=== PATIENT | male | born 1970 | race Caucasian/White ===

== ENCOUNTER 2020-03-26 09:47 | Emergency (ER) | payer MEDICAID, SELFPAY ==
[2020-03-26 09:58] VITALS: BP 168/86; PULSE 96; RESP 18; TEMP 36.8; O2SAT 97; BMI 36.9
--- NOTE | 2020-03-26 09:58 | XR_ITS ---
WS: [id number] Left wrist, 4 views including a scaphoid view, 03/26/2020 Clinical Data: fall pain Comparison: None. Findings: No fractures or dislocations are seen. The carpal bones are intact. There is no soft tissue swelling. The distal radius and ulna are not remarkable. XR/XR wrist LT w scaphoid [id number] Impression: Negative left wrist.
--- NOTE | 2020-03-26 09:58 | XR_ITS ---
WS: [id number] 3 views of the left first finger, 03/26/2020 Clinical Data: Thumb Comparison: None. Findings: No fractures or dislocations are seen. The soft tissues are normal. The joint spaces are not remarka ble. XR/XR finger LT min 2V [id number] Impression: Negative left thumb.
--- NOTE | 2020-03-26 11:10 | ED_ITS ---
HPI - Extremity Problem General: Chief complaint: Extremity Injury, Upper Stated complaint: fall-left hand injury Time Seen by Provider: 03/26/20 09:56 History of Present Illness: HPI Narrative: 49-year-old male presents to the emergency room with complaint of left thumb pain. He reports having fallen down last night. Localizes the pain to the PIP joint in the left thumb. No other injuries. MD Complaint: joint pain Onset (ago): day(s) (1) Pain Consistency: constant Location: left Quality: sharp Radiation: none Relieving factors: nothing Exacerbating factors: range of motion and palpation Associated symptoms: Deny arthralgias, chest pain, fever(s), myalgias, rash or short of breath Review of Systems Const: Denies: fever(s) ENMT: Denies: throat pain, ear or mastoid pain, nasal discharge or nasal congestion Card: Denies: chest pain Resp: Denies: dyspnea, productive cough or non-productive cough GI: Denies: abdominal pain, nausea, vomiting, hematemesis, coffee ground emesis, diarrhea, constipation, bloating, hematochezia or melena : Denies: flank pain, dysuria, urinary frequency or urinary urgency Skin/Breast: Denies: rash PFSH ED PFSH: Social History Smoking and tobacco status: current every day smoker Alcohol intake: never Physical Exam Const: COMMON NORMALS: no acute distress GENERAL APPEARANCE: cooperative and comfortable ORIENTATION/CONSCIOUSNESS: Yes awake, Yes oriented to person, Yes oriented to place and Yes oriented to time HENMT: COMMON NORMALS: normocephalic, atraumatic and hearing grossly normal bilaterally HEAD & SCALP: normocephalic and atraumatic Neck/C-Spine: COMMON NORMALS: no JVD Resp: COMMON NORMALS: normal respiratory effort, No retractions, No use of accessory muscles and clear to auscultation bilaterally AUSCULTATION: clear to auscultation bilaterally Cardio: COMMON NORMALS: no JVD, regular rate, regular rhythm and No murmurs present (Cardio) RATE: regular rate RHYTHM: regular rhythm Extremity: NARRATIVE EXTREMITY EXAM: Examination of the left thumb there is no pain in the anatomical snuffbox there is no pain with axial loading. There is discomfort with stress on the medial and lateral collateral ligaments on the thumb at the PIP joint. There is no subluxation there is no deformity at those joints with stress. There is no significant swelling. Neuro: SENSORIUM/ORIENTATION: Yes oriented to person, Yes oriented to place and Yes oriented to time Skin: COMMON NORMALS: no rashes or lesions noted GENERAL SKIN EXAM: no rashes or lesions noted Course Vital Signs: Vital signs: Vital Signs Temperature 98.2 F 03/26/20 09:58 Pulse Rate 85 03/26/20 12:22 Respiratory Rate 18 03/26/20 12:22 Blood Pressure 197/108 03/26/20 12:22 Pulse Oximetry 96 03/26/20 12:22 MDM - Extremity (Nontraumatic) MDM Narrative: Medical decision making narrative: Reviewed findings with the patient ice anti-inflammatories follow-up with primary care if does not resolve. At this point the medial collateral ligaments are intact so I think he just sprained it. If it worsened he could get advanced imaging through primary care. Discharge Plan Discharge Patient Disposition: Home Clinical Impression: Left thumb sprain Condition: Stable Prescriptions: New diclofenac sodium 75 mg tablet,delayed release (DR/EC) 75 mg PO Q12H PRN (Reason: pain) Qty: 20 RF: 0 Discharge Orders: Discharge Order (Routine); Ordered 03/26/20 Ordered By: Ken Gomez Discharge Diet: Usual diet Discharge Activity: Increase activity as tolerated Activity Restrictions/Additional Instructions: If not improving over the next 2 to 3 days recheck if worsens recheck in the emergency room. Discharge Date/Time: 03/26/20 12:26 Coding Level of Care Code ED Heading And Priming Tool Setter for Ronna Fwgloria Exam Detailed
[2020-03-26 12:22] VITALS: BP 197/108; PULSE 85; RESP 18; O2SAT 96
== END 2020-03-26 12:26 | disposition home or self-care (01) ==
PROVIDERS: Emergency Provider Family Medicine
DX: S63.602A Unspecified sprain of left thumb, initial encounter (principal); W19.XXXA Unspecified fall, initial encounter; F17.210 Nicotine dependence, cigarettes, uncomplicated
CPT/HCPCS: 12345; 73110; 73140; 99281; 99282

== ENCOUNTER 2020-03-31 08:41 | Emergency (ER) | payer MEDICARE, MEDICAID, SELFPAY ==
[2020-03-31 08:48] VITALS: BP 134/72; PULSE 78; RESP 18; TEMP 36.4; O2SAT 98; BMI 36.3
--- NOTE | 2020-03-31 09:02 | ED_ITS ---
HPI - SOB/Dyspnea General: Chief Complaint: Dental/Oral Stated Complaint: DENTAL PAIN/FLANK PAIN Time Seen by Provider: 03/31/20 08:48 History of Present Illness: HPI Narrative: 49-year-old male patient from [facility] presents to the emergency department with 1 week onset of increased edema to the bilateral lower extremities and shortness of breath. 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 Reports history of congestive heart failure, cardiomyopathy, and stage IV renal failure. Reports difficulty breathing upon exam. Reports increased cough past 2 days but is not able to produce sputum. History of COPD. Primary care Dr. Bojorquez located in [facility]. Reports poor dental care, does not have a dentist. He denies chest pain, reports chest heaviness. Denies known exposure to COVID- 19. Reports onset of dental pain x24 hours. Right lower jaw. Poor dentition. MD elicited complaint: shortness of breath and cough Pertinent past history: COPD, congestive heart failure, diabetes and IV drug use Onset (ago): week(s) (1) Timing: intermittent and progressively worsening Severity: moderate Exacerbating factors: lying flat and inspiration Known history of: COPD, congestive heart failure, diabetes and IVDU Associated symptoms: Reports chest congestion, cough and orthopnea; Deny abdominal pain, chest pain, diaphoresis, fever(s), nausea, palpitations or vomiting Treatment prior to arrival: none Review of Systems General: Reports: 10 or more systems reviewed and unremarkable except in HPI and below Const: Reports: fatigue and malaise; Denies: fever(s), chills or diaphoresis Eyes: Reports: blurry vision; Denies: eye redness or seeing flashes ENMT: Reports: dental pain (rt lower jaw); Denies: throat pain, hoarseness or disequilibrium Card: Reports: edema, swelling of feet/ankles, dyspnea on exertion and orthopnea; Denies: chest pain, palpitations or irregular heart rhythm Resp: Reports: dyspnea, non-productive cough and chest congestion GI: Denies: abdominal pain, nausea or vomiting : Denies: dysuria Musc: Denies: neck pain or back pain Skin/Breast: Denies: rash or pruritus Neuro: Denies: headache(s), weakness in extremities or behavioral changes Psych: Denies: anxiety or depression Nabil/Lymph: Denies: easy bruising PFSH ED PFSH: Social History Smoking and tobacco status: current every day smoker Alcohol intake: never Physical Exam Const: COMMON NORMALS: no acute distress, patient oriented x3, alert and well nourished GENERAL APPEARANCE: cooperative, disheveled and well hydrated NUTRITIONAL APPEARANCE: overweight ORIENTATION/CONSCIOUSNESS: Yes awake, Yes oriented to person, Yes oriented to place and Yes oriented to time HENMT: COMMON NORMALS: normocephalic, atraumatic, Normal external nose present, moist oral mucous membranes and oropharynx normal HEAD & SCALP: normal to inspection, normocephalic and atraumatic FACE & SINUS: normal facial exam NOSE: Normal external nose present MOUTH: Normal oral and palatal mucosa present TEETH & GINGIVA: Yes abnormal tooth and associated gingiva, Yes caries, Yes poor dentition and Yes teeth discoloration THROAT: uvula midline THROAT IMAGE: 1. dental avulsion, not acute, extremely poor dentition through the mouth Eye: COMMON NORMALS: Equal, round and reactive pupils present and EOMs intact bilaterally GENERAL EYE: appearance normal, both eyes and all related structures PUPIL: Yes Equal, round and reactive pupils present Neck/C-Spine: COMMON NORMALS: full ROM and no lymphadenopathy GENERAL: Yes normal visual inspection and Yes trachea midline CERVICAL SPINE: Yes cervical ROM normal Lymph: LYMPHATIC: no lymphadenopathy noted Chest: COMMONS NORMALS: normal inspection of the chest and normal palpation of entire chest wall Resp: COMMON NORMALS: normal respiratory effort EFFORT & INSPECTION: Yes able to speak in complete sentences AUSCULTATION: diminished lung sounds bilateral in the lower lung resendiz Cardio: COMMON NORMALS: regular rhythm, S1 normal heart sound present, S2 normal heart sound present and Peripheral pulses 2+ throughout RHYTHM: regular rhythm HEART SOUNDS: S1 normal heart sound present, S2 normal heart sound present and Other heart sounds present (2 + edema BLE) PERIPHERAL PULSES: Peripheral pulses 2+ throughout GI: COMMON NORMALS: Soft to palpation and non-tender INSPECTION: Yes normal to inspection PALPATION: Yes Soft to palpation : COMMON NORMALS: Yes no CVA tenderness BLADDER/KIDNEY EXAM: Yes no CVA tenderness Back/Pelvis: COMMON NORMALS: no CVA tenderness and thoracic and lumbar spine normal to inspection Extremity: COMMON NORMALS: normal to inspection and capillary refill normal Neuro: COMMON NORMALS: patient oriented x3 and no focal motor deficits SENSORIUM/ORIENTATION: Yes alert, Yes oriented to person, Yes oriented to place and Yes oriented to time Psych: COMMON NORMALS: mental status grossly normal, Normal thought process present and cooperative ACTIVITY/MOTOR BEHAVIOR: Yes appropriate eye contact THOUGHT PROCESS: Normal thought process present Skin: COMMON NORMALS: no rashes or lesions noted and turgor normal GENERAL SKIN EXAM: no rashes or lesions noted and turgor normal Course ED course: 49-year-old male patient presents to the emergency department due to dental pain with shortness of breath. History of congestive heart failure, chronic kidney disease and diabetes. EKGs without acute process,2-hour troponin with negative delta, creatinine noted to be elevated at 3.5. Baseline serology o btained from [facility] with baseline creatinine 3.7. BNP noted to be elevated, history of congestive heart failure. Chest x-ray revealed enlargement of cardiac silhouette. Case discussed with Dr. Hansen, advised to increase Lasix to 40 mg p.o. twice daily and to increase potassium to twice daily dosing for 3 days, certified social workers in health care referral for follow-up with primary care provider while he is here in the area. Repeat chemistry advised in 3 days. Results discussed with the patient, dental referral/dental providers given to the patient. Advised to schedule appointment within 10 days, prescription for amoxicillin given, O2 saturation remained 100% during his stay here. Agrees for follow-up as recommended. Will return to the emergency department if he develops worsening/concerning symptoms such as chest pain, increased shortness of breath or fever. Vital Signs: Vital signs: Vital Signs Temperature 97.5 F L 03/31/20 08:48 Pulse Rate 87 03/31/20 14:29 Respiratory Rate 18 03/31/20 14:29 Blood Pressure 177/87 03/31/20 14:29 Pulse Oximetry 96 03/31/20 14:29 MDM - SOB/Dyspnea Lab Data: Labs: Lab Results 03/31/20 03/31/20 03/31/20 Range/Units 09:32 09:35 09:35 WBC 9.5 (4.0-10.0) 10^3/ uL RBC 3.83 L (4.1-5.3) 10^6/u L Hgb 9.8 L (11.7-16.6) g/dL Hct 33.1 L (42.0-52.0) % MCV 86.4 (80-94) fL MCH 25.6 L (28.0-34.0) pg MCHC 29.6 L (30.0-36.0) g/dL RDW 15.2 H (12.1-15.1) % Plt Count 293 (130-400) 10^3/c mm MPV 10.1 (7.4-10.4) fL Neut % (Auto) 67.4 % Lymph % (Auto) 18.7 % [place] % (Auto) 6.3 % Eos % (Auto) 6.4 % Baso % (Auto) 0.6 % Neut # (Auto) 6.41 (1.8-7.7) 10^3/u L Lymph # (Auto) 1.8 (0.8-4.8) 10^3/u L [place] # (Auto) 0.6 (0.2-0.9) 10^3/u L Eos # (Auto) 0.6 (0.0-0.8) 10^3/u L Baso # (Auto) 0.1 (0.0-0.1) 10^3/u L Nucleated RBC % (a uto) 0 % Nucleated RBCs # 0.0 /100WBC Sodium 140 (136-145) mmol/L Potassium 3.5 (3.5-5.1) mmol/L Chloride 105 (98-107) mmol/L Carbon Dioxide 25 (22-29) mmol/L Anion Gap 13.5 (5-19) BUN 43 H (6-20) mg/dL Creatinine 3.5 H (0.7-1.2) mg/dL GFR Calculation 18.6 L (90-130) mL/min Glucose 224 H (65-115) mg/dL POC Glucose 218 (70-110) mg/dL Calculated Osmolal ity 308 H (285-295) mOsm/k g Lactate (0.5-2.2) mmol/L Calcium 8.5 (8.5-10.5) mg/dL Ferritin (30-400) ng/mL Total Bilirubin 0.2 (0.15-1.2) mg/dL AST 13 (0-40) U/L ALT 18 (0-41) U/L Alkaline Phosphata se 106 (40-130) IU/L Troponin T Baselin e (0-15) ng/L Troponin T 120 Min [place] (0-15) ng/L Delta Troponin T (0-10) ABS# NT-Pro-B Natriuret Pep 3107 H (0-125) pg/mL Total Protein 5.4 L (6.6-8.7) g/dL Albumin 3.4 L (3.5-5.2) g/dL Globulin 2.0 (1.3-4.6) g/dL 03/31/20 03/31/20 03/31/20 Range/Units 09:35 09:35 09:35 WBC (4.0-10.0) 10^3/ uL RBC (4.1-5.3) 10^6/u L Hgb (11.7-16.6) g/dL Hct (42.0-52.0) % MCV (80-94) fL MCH (28.0-34.0) pg MCHC (30.0-36.0) g/dL RDW (12.1-15.1) % Plt Count (130-400) 10^3/c mm MPV (7.4-10.4) fL Neut % (Auto) % Lymph % (Auto) % [place] % (Auto) % Eos % (Auto) % Baso % (Auto) % Neut # (Auto) (1.8-7.7) 10^3/u L Lymph # (Auto) (0.8-4.8) 10^3/u L [place] # (Auto) (0.2-0.9) 10^3/u L Eos # (Auto) (0.0-0.8) 10^3/u L Baso # (Auto) (0.0-0.1) 10^3/u L Nucleated RBC % (a uto) % Nucleated RBCs # /100WBC Sodium (136-145) mmol/L Potassium (3.5-5.1) mmol/L Chloride (98-107) mmol/L Carbon Dioxide (22-29) mmol/L Anion Gap (5-19) BUN (6-20) mg/dL Creatinine (0.7-1.2) mg/dL GFR Calculation (90-130) mL/min Glucose (65-115) mg/dL POC Glucose (70-110) mg/dL Calculated Osmolal ity (285-295) mOsm/k g Lactate 1.0 (0.5-2.2) mmol/L Calcium (8.5-10.5) mg/dL Ferritin 62 (30-400) ng/mL Total Bilirubin (0.15-1.2) mg/dL AST (0-40) U/L ALT (0-41) U/L Alkaline Phosphata se (40-130) IU/L Troponin T Baselin e 86 H (0-15) ng/L Troponin T 120 Min [place] (0-15) ng/L Delta Troponin T (0-10) ABS# NT-Pro-B Natriuret Pep (0-125) pg/mL Total Protein (6.6-8.7) g/dL Albumin (3.5-5.2) g/dL Globulin (1.3-4.6) g/dL 03/31/20 Range/Units 11:15 WBC (4.0-10.0) 10^3/ uL RBC (4.1-5.3) 10^6/u L Hgb (11.7-16.6) g/dL Hct (42.0-52.0) % MCV (80-94) fL MCH (28.0-34.0) pg MCHC (30.0-36.0) g/dL RDW (12.1-15.1) % Plt Count (130-400) 10^3/c mm MPV (7.4-10.4) fL Neut % (Auto) % Lymph % (Auto) % [place] % (Auto) % Eos % (Auto) % Baso % (Auto) % Neut # (Auto) (1.8-7.7) 10^3/u L Lymph # (Auto) (0.8-4.8) 10^3/u L [place] # (Auto) (0.2-0.9) 10^3/u L Eos # (Auto) (0.0-0.8) 10^3/u L Baso # (Auto) (0.0-0.1) 10^3/u L Nucleated RBC % (a uto) % Nucleated RBCs # /100WBC Sodium (136-145) mmol/L Potassium (3.5-5.1) mmol/L Chloride (98-107) mmol/L Carbon Dioxide (22-29) mmol/L Anion Gap (5-19) BUN (6-20) mg/dL Creatinine (0.7-1.2) mg/dL GFR Calculation (90-130) mL/min Glucose (65-115) mg/dL POC Glucose (70-110) mg/dL Calculated Osmolal ity (285-295) mOsm/k g Lactate (0.5-2.2) mmol/L Calcium (8.5-10.5) mg/dL Ferritin (30-400) ng/mL Total Bilirubin (0.15-1.2) mg/dL AST (0-40) U/L ALT (0-41) U/L Alkaline Phosphata se (40-130) IU/L Troponin T Baselin e (0-15) ng/L Troponin T 120 Min [place] 84.93 H (0-15) ng/L Delta Troponin T -1.07 L (0-10) ABS# NT-Pro-B Natriuret Pep (0-125) pg/mL Total Protein (6.6-8.7) g/dL Albumin (3.5-5.2) g/dL Globulin (1.3-4.6) g/dL Imaging Data^: CXR: Radiologist's impression: [address] [address] XRay Report Signed Patient: Pauline Jimenez #: [id number] : 1970Acct#:[id number] Age/Sex: 49 / MADM Date: 03/31/20 Loc: [facility]/Bed: Attending Dr: Ordering Provider/Ordering MD: Glendy Wilson Date of Service: 03/31/20 Procedure(s): XR chest 1V portable [id number] Accession Number(s): [id number] Report Number: [id number] PROCEDURE INFORMATION: Exam: XR Chest, 1 View Exam date and time: 03/31/2020 9:02 AM Age: 49 years old Clinical indication: Other: Tooth pain; Additional info: Syncope TECHNIQUE: Imaging protocol: XR of the chest Views: 1 view. COMPARISON: No relevant prior studies available. FINDINGS: Lungs: Unremarkable. No consolidation. Pleural space: Unremarkable. No pleural effusion. No pneumothorax. Heart/Mediastinum: The cardiac silhouette is enlarged. Bones/joints: Unremarkable. XR/XR chest 1V portable [id number] IMPRESSION: Enlargement of the cardiac silhouette. The lungs are clear. Dictated By:Sky Samuels Signed By:Sky SamuelsSigncandace Date/Time:03/31/20 1021 DD/ 1020 Other Xray: Radiologist's impression: [address] [address] XRay Report Signed Patient: Rain Miller Unit #: [id number] : 11/09/2002 Age/Sex: 17 / F ADM Date: 03/31/20 Loc: ER Room/Bed: Attending Dr: Ordering Provider/Ordering MD: Glendy Wilson Date of Service: 03/31/20 Procedure(s): XR KUB 49512 Accession Number(s): [id number] Report Number: [id number] PROCEDURE INFORMATION: Exam: XR Abdomen, 1 View Exam date and time: 03/31/2020 11:29 AM Age: 17 years old Clinical indication: Abdominal pain; Flank; Left; Additional info: Renal stone TECHNIQUE: Imaging protocol: XR of the abdomen. Views: Frontal supine view of the abdomen. 1 View. COMPARISON: CT kidney stone [id number] 07/04/2019 9:09 AM FINDINGS: Gastrointestinal tract: Normal. No bowel dilation. Organs: There is a 6 mm calculus projecting at the left ureterovesical junction. This has not changed since today's CT scan. No other calcifications are seen in the projection of the kidneys or ureters. Bones/joints: Unremarkable. XR/XR KUB [id number] IMPRESSION: No change in the position of the 6 mm calculus at the left ureterovesical junction. Dictated By: Sky Samuels Signed By: Sky Samuels Signed Date/Time: 03/31/20 1240 DD/ 1238 EKG Data^: EKG 1: EKG Interpretation Date: 03/31/20 EKG interpretation time: 09:12 Prior EKG tracings: not available for review Computer Generated Interpretation: Sinus rhythm with occasional supraventricular premature complexes, left ventricular hypertrophy, possible lateral myocardial infarction of indeterminate age, abnormal ECG Discharge Plan Discharge Patient Disposition: Home Clinical Impression: Pain, dental CHF (congestive heart failure) Qualifiers: Heart failure type: unspecified Heart failure chronicity: unspecified Qualified Code(s): I50.9 - Heart failure, unspecified CKD (chronic kidney disease) stage 3, GFR 30-59 ml/min Qualifiers: Chronic kidney disease stage 3 subtype: stage 3b (GFR 30-44) Qualified Code(s): N18.32 - Chronic kidney disease, stage 3b Condition: Stable Prescriptions: New amoxicillin 500 mg capsule 500 mg PO TID 10 Days Qty: 30 RF: 0 Continued Lasix 40 mg Tablet 40 mg PO DAILY RF: 0 atorvastatin 80 mg Tablet 80 mg PO DAILY RF: 0 carvedilol 25 mg Tablet 25 mg PO BID RF: 0 Depakote 250 mg Tablet,Delayed Release (Dr/Ec) 250 mg PO BID RF: 0 clonidine HCl 0.3 mg Tablet 0.3 mg PO BID RF: 0 omeprazole 40 mg Capsule,Delayed Release(Dr/Ec) 40 mg PO DAILY RF: 0 isosorbide mononitrate 60 mg Tablet Extended Release 24 Hr 60 mg PO QAM RF: 0 tamsulosin 0.4 mg Capsule 0.4 mg PO DAILY RF: 0 amitriptyline 10 mg Tablet 10 mg PO DAILY RF: 0 hydralazine 100 mg Tablet 100 mg PO TID RF: 0 DOK 100 mg Capsule 100 mg PO BID PRN (Reason: Constipation) RF: 0 aspirin 81 mg Tablet,Chewable 81 mg PO DAILY RF: 0 diclofenac sodium 75 mg Tablet,Delayed Release (Dr/Ec) 75 mg PO BID PRN (Reason: Pain) RF: 0 albuterol sulfate 90 mcg/actuation Hfa Aerosol Inhaler 2 puff INHALATION QID PRN (Reason: Shortness Of Breath) RF: 0 hydroxyzine HCl 10 mg Tablet 10 mg PO TID PRN (Reason: Itching) RF: 0 Topamax 50 mg Tablet 50 mg PO BID RF: 0 Symbicort 160-4.5 mcg/actuation Hfa Aerosol Inhaler 2 puff INHALATION BID RF: 0 Tresiba FlexTouch U-200 200 unit/mL (3 mL) Insulin Pen 56 unit SUBCUT BEDTIME RF: 0 potassium chloride 20 mEq Tablet Extended Release 20 meq PO DAILY RF: 0 Discharge Orders: Discharge Order (Routine); Ordered 03/31/20 Ordered By: Glendy Wilson Discharge Diet: Cardiac Discharge Activity: Limit activity as instructed Patient Instructions: Heart Failure (ED), Dental Caries (ED), Toothache (ED) Activity Restrictions/Additional Instructions: Social service will be contacting you with an appointment with primary care to set up while you are here in [place] You will need to increase Lasix 40 mg to twice daily for 3 days Increase potassium 20 mEq daily to twice daily for 3 days Suggest to repeat chemistry panel in 3 days, you will need a follow-up appointment with a primary care provider for this Continue amoxicillin until all gone, even if feeling better, you will need to follow-up with dental services. A list of dental providers have been given to you, please call and schedule an appointment within 10 days Return to the emergency department if you develop increased shortness of breath, chest pain, or difficulty swallowing. Swish and spit with warm salt water several times daily to help with dental pain Discharge Date/Time: 03/31/20 14:33 Coding Level of Care Code ED Exploration Engineer for Ronna Fwgloria Exam Comprehensive
--- NOTE | 2020-03-31 09:02 | ECG_ITS ---
[facility] Test Date: 2020-03-31 Pat Name: Sven Jimenez Department: Room: Gender: Male Supply Assistant: : 1970 Requested By: Glendy Horton Order Number: [id number] Mya MD: Brenda Abad M.D. Measurements Intervals [place] Rate: 67 P: 46 WI: 175 QRS: -35 QRSD: 136 T: 159 QT: 467 QTc: 496 Interpretive Statements SINUS RHYTHM WITH OCCASIONAL SUPRAVENTRICULAR PREMATURE COMPLEXES MARKED LEFT AXIS DEVIATION [QRS AXIS < -30] INTRAVENTRICULAR CONDUCTION DELAY [130+ ms QRS DURATION] LEFT VENTRICULAR HYPERTROPHY AND ST-T CHANGE [VOLTAGE CRITERIA PLUS ST/T ABNORMALITY] POSSIBLE LATERAL MYOCARDIAL INFARCTION [30 ms Q WAVE IN I/aVL/V5/V6], OF INDETERMINATE AGE No previous ECG available for comparison Electronically Signed On 03-31-2020 9:19:48 LARGE ENGINE ASSEMBLER by Brenda Abad M.D. [id number]
[2020-03-31 09:35] LABS: Glucose Point of Care 218 mg/dL (70-110)
[2020-03-31 09:44] LABS: Basophils # 0.1 10^3/uL (0.0-0.1); Basophils % 0.6 %; Eosinophils # 0.6 10^3/uL (0.0-0.8); Eosinophils % 6.4 %; Hematocrit 33.1 % (42.0-52.0); Hemoglobin 9.8 g/dL (11.7-16.6); Lymphocytes # 1.8 10^3/uL (0.8-4.8); Lymphocytes % 18.7 %; Mean Corpuscular HGB Conc 29.6 g/dL (30.0-36.0); Mean Corpuscular Hemoglobin 25.6 pg (28.0-34.0); Mean Corpuscular Volume 86.4 fL (80-94); Mean Platelet Volume 10.1 fL (7.4-10.4); Monocytes # 0.6 10^3/uL (0.2-0.9); Monocytes % 6.3 %; Neutrophils # 6.41 10^3/uL (1.8-7.7); Neutrophils % 67.4 %; Nucleated Red Blood Cells % 0 %; Platelet Count 293 10^3/cmm (130-400); Red Blood Count 3.83 10^6/uL (4.1-5.3); Red Cell Distribution Width 15.2 % (12.1-15.1); White Blood Count 9.5 10^3/uL (4.0-10.0)
[2020-03-31 09:57] VITALS: O2SAT 92
[2020-03-31 10:40] LABS: Troponin(5th) Baseline 86 ng/L (0-15)
[2020-03-31 10:49] LABS: Alanine Aminotransferase 18 U/L (0-41); Albumin Level 3.4 g/dL (3.5-5.2); Alkaline Phosphatase 106 IU/L (40-130); Anion Gap 13.5 (5-19); Aspartate Amino Transferase 13 U/L (0-40); Blood Urea Nitrogen 43 mg/dL (6-20); Calcium 8.5 mg/dL (8.5-10.5); Carbon Dioxide 25 mmol/L (22-29); Chloride 105 mmol/L (98-107); Glomerular Filtration Rate 18.6 mL/min (90-130); Glucose 224 mg/dL (65-115); NT Pro B Type Natriuretic Pept 3107 pg/mL (0-125); Osmolality Calculated 308 mOsm/kg (285-295); Potassium 3.5 mmol/L (3.5-5.1); Sodium 140 mmol/L (136-145); Total Bilirubin 0.2 mg/dL (0.15-1.2); Total Protein 5.4 g/dL (6.6-8.7)
--- NOTE | 2020-03-31 11:02 | ECG_ITS ---
[facility] Test Date: 2020-03-31 Pat Name: Sven Jimenez Department: Room: Gender: Male Television Installer Helper: : 1970 Requested By: Glendy Horton Order Number: [id number] Mya MD: Brenda Abad M.D. Measurements Intervals [place] Rate: 67 P: -48 VA: 174 QRS: -45 QRSD: 140 T: 134 QT: 471 QTc: 497 Interpretive Statements SINUS RHYTHM WITH OCCASIONAL SUPRAVENTRICULAR PREMATURE COMPLEXES INTRAVENTRICULAR CONDUCTION DELAY [130+ ms QRS DURATION] POSSIBLE LEFT VENTRICULAR HYPERTROPHY WITH ST-T WAVE CHANGES Compared to ECG 03/31/2020 09:11:13 Left-axis deviation no longer present Myocardial infarct finding still present Electronically Signed On 04-02-2020 0:07:45 HOME AND SCHOOL VISITOR by Brenda Abad M.D. [id number] [email or web address]
--- NOTE | 2020-03-31 11:17 | PC.NURSE ---
[facility] [place] called regarding pt status and plan for d/c. Updated on wait for lab work.
[2020-03-31 12:11] LABS: Troponin 5 2HR 84.93 ng/L (0-15)
[2020-03-31 12:13] LABS: Troponin 5 2HR Delta -1.07 ABS# (0-10)
[2020-03-31 12:13] LABS: Ferritin 62 ng/mL (30-400)
[2020-03-31 14:29] VITALS: BP 177/87; PULSE 87; RESP 18; O2SAT 96
[2020-03-31 15:07] LABS: Valproic Acid Level 25.9 ug/mL (50-100)
--- NOTE | 2020-04-02 15:24 | DCPLANNER ---
fisheries manager had message to speak with patient about finding a primary care physician. fisheries manager called patient, offered to help get patient established with a primary care physician in [place]. Patient stated that he is not in [place] anymore. Patient stated that he would follow up with a physician where he lives.
== END 2020-03-31 14:33 | disposition home or self-care (01) ==
PROVIDERS: Emergency Provider Nurse Practitioner Family
DX: N18.32 Chronic kidney disease, stage 3b (principal); I50.9 Heart failure, unspecified; K08.89 Other specified disorders of teeth and supporting structures; Z79.82 Long term (current) use of aspirin; Z79.4 Long term (current) use of insulin; F17.210 Nicotine dependence, cigarettes, uncomplicated; R07.89 Other chest pain
CPT/HCPCS: 12345; 36415; 36416; 71045; 80053; 80164; 82728; 82962; 83605; 83880; 84484; 85025; 93005; 99282; 99283